=== PATIENT | male | born 1985 ===

== ENCOUNTER 2017-08-11 13:38 | Emergency (ER) | payer MEDICAID, OTHER ==
[2017-08-11 13:48] VITALS: BMI 29.3
[2017-08-11 13:53] VITALS: PULSE 74; TEMP 97.9; O2SAT 98
[2017-08-11] MEDS ORDERED: Sodium Chloride 0.9% 1,000 ML IV ONE (13:57)
[2017-08-11] MEDS ORDERED: Sodium Chloride 0.9% 1,000 ML ONE (14:05)
--- NOTE | 2017-08-11 14:12 | C.PDOC ---
History Of Present Illness 32 yo male come in for evaluation of epigastric pain associated with nausea, intractable vomiting since yesterday evening. Pt reports, " went out for family dinner last night, had [employer]. and soon after developed stomach pain with intractable vomiting". Pt admits, was unable tolerate any PO today AM as well. Otherwise, pt denies fever, chills, headache, dizziness, neck pain, throat pain/ swelling or tightness, drooling, CP, SOB, dyspnea, diaphoresis, palpitation, hematemesis, diarrhea, back pain, UTIU sx, denies previous hx of GI ds. Ambulate to Ed for evaluation, appears comfortable, not in any apparent distress. Time Seen by Provider: 08/11/17 13:55 Chief Complaint (Nursing): Abdominal Pain History Per: Patient Past Medical History Reviewed: Historical Data, Nursing Documentation, Vital Signs Vital Signs: Last Vital Signs Temp 97.9 F 08/11/17 13:48 Pulse 74 08/11/17 13:48 Resp 18 08/11/17 13:48 BP 114/67 08/11/17 13:48 Pulse Ox 98 08/11/17 14:13 - Medical History PMH: No Chronic Diseases Surgical History: No Surg Hx Family History: States: No Known Family Hx - Social History Hx Tobacco Use: Yes Hx Alcohol Use: Yes Hx Substance Use: No - Immunization History Hx Tetanus Toxoid Vaccination: No Hx Influenza Vaccination: No Hx Pneumococcal Vaccination: No Review Of Systems Except As Marked, All Systems Reviewed And Found Negative. Constitutional: Negative for: Fever, Chills Eyes: Negative for: Vision Change ENT: Negative for: Throat Pain, Throat Swelling Cardiovascular: Negative for: Chest Pain, Palpitations Respiratory: Negative for: Cough, Shortness of Breath, Wheezing Gastrointestinal: Positive for: Nausea, Vomiting, Abdominal Pain. Negative for : Diarrhea, Melena, Hematochezia, Hematemesis, Rectal Pain Genitourinary: Negative for: Dysuria, Frequency, Incontinence Musculoskeletal: Negative for: Neck Pain, Back Pain Skin: Negative for: Rash Neurological: Negative for: Weakness, Numbness, Altered Mental Status, Headache , Dizziness Physical Exam - Physical Exam Appears: Well, Non-toxic, No Acute Distress Skin: Normal Color, Warm, Dry, No Rash Head: Normacephalic Eye(s): bilateral: PERRL Nose: No Flaring, No Discharge Oral Mucosa: Moist, No Drooling Throat: No Erythema, No Exudate, No Drooling Neck: Trachea Midline, Supple Cardiovascular: Rhythm Regular Respiratory: No Decreased Breath Sounds, No Rales, No Rhonchi, No Wheezing Gastrointestinal/Abdominal: Soft, Tenderness (mod epigastric tenderness), No Distention, No Guarding, No Rebound Back: No CVA Tenderness Extremity: Normal ROM, No Deformity, No Swelling Neurological/Psych: Oriented x3, Normal Speech ED Course And Treatment - Laboratory Results Result Diagrams: 08/11/17 14:22 08/11/17 14:22 O2 Sat by Pulse Oximetry: 98 Pulse Ox Interpretation: Normal Progress Note: Pt was OBS in ED for 2 hours and remained stable during the ED evaluation. AFebrile, hemodynamicaly stable. Non-toxic. Pt was given PO challenge, was able tolerate ED well. ENT: NO acute finidngs. Neck: SUpple. Lungs: CTA B/L, BS equal B/L. CVS: (+)S1S2, reg. Abd: benign, (-) guarding, (- ) rebound, (-) localized tenderness. Back: (-) CVA tenderness. Neurologicaly intact. Blood work review and appears without acute abnoramlities. Pt has clinical findings c/w epigastric pain, vomiting, polysubstance abuse. Pt advised. ref. to F/u with PMD, DEtox in 2-3 days for re-eavl. return to ED if any worsening or new changes. Disposition Counseled Patient/Family Regarding: Studies Performed, Diagnosis, Need For Followup, Rx Given - Disposition Referrals: Ambrosio Roland [Staff Provider] - [facility] [Outside] Disposition: HOME/ ROUTINE Disposition Time: 15:54 Condition: STABLE Additional Instructions: ENCOURAGE FLUIDS TAKE MEDICATION PRESCRIBED DIET RESTRICTION FOR 1-2 DAYS, ADVANCE TOLERATED CONSIDER STOP USING DRUGS- OR DETOX FOLLOW UP WITH PMD IN 2-3 DAYS FOR RE-EVALUATION. RETURN TO ED IF ANY WORSENING OR NEW CHANGES. Prescriptions: Pantoprazole Sodium [Protonix] 40 mg PO DAILY #20 tablet.dr Instructions: Epigastric Pain (ED), Acute Nausea and Vomiting (ED), Polysubstance Abuse (ED) Forms: [employer] (Greek) - Clinical Impression Clinical Impression: Vomiting, Nausea, Epigastric abdominal pain, Polysubstance abuse
[2017-08-11 14:25] LABS: BASO # 0.1 K/uL (0.0-0.2); BASO % 1.4 % (0.0-2.0); EOS # 0.3 K/uL (0.0-0.7); EOS % 6.3 % (0.0-4.0); LYMPH # 1.3 K/uL (1.0-4.3); LYMPH % 28.5 % (20.0-40.0); MEAN CELL VOLUME 97.4 fL (80.0-94.0); MEAN CORPUSCULAR HEMOGLOBIN 32.4 pg (27.0-31.0); MEAN CORPUSCULAR HGB CONC 33.3 g/dL (33.0-37.0); MEAN PLATELET VOLUME 8.7 fL (7.2-11.7); MONO # 0.5 K/uL (0.0-0.8); MONO % 9.9 % (0.0-10.0); NRBC % 0.2 % (0.0-2.0); RED CELL DISTRIBUTION WIDTH 12.9 % (11.5-14.5); WHITE BLOOD COUNT 4.6 K/uL (4.8-10.8)
[2017-08-11 14:36] LABS: ALB/GLOB RATIO 0.9 (1.0-2.1); ALKALINE PHOSPHATASE 50 U/L (38-126); ALT/SGPT 52 U/L (21-72); AST/SGOT 28 U/L (17-59); BILIRUBIN,TOTAL 0.6 mg/dL (0.2-1.3); BLOOD UREA NITROGEN 10 mg/dL (9-20); CALCIUM 7.8 mg/dl (8.6-10.4); CARBON DIOXIDE 28 mmol/L (22-30); CHLORIDE 104 mmol/L (98-107); GFR AFRICAN-AMERICAN > 60; GLUCOSE,RANDOM 62 mg/dL (75-110); POTASSIUM 3.2 mmol/L (3.6-5.2); SODIUM 138 mmol/L (132-148); TOTAL PROTEIN 7.3 g/dL (6.3-8.3)
[2017-08-11 14:43] LABS: RBC URINE 1 /hpf (0-3); URINE BACTERIA RARE (<OCC); URINE BILIRUBIN NEGATIVE (NEGATIVE); URINE BLOOD NEGATIVE (NEGATIVE); URINE COLOR Yellow (YELLOW); URINE GLUCOSE (UA) NORMAL (Normal); URINE KETONE NEGATIVE (NEGATIVE); URINE LEUKOCYTE ESTERASE TRACE Leu/uL (Negative); URINE PROTEIN NEGATIVE (NEGATIVE); WBC URINE 5 /hpf (0-5)
[2017-08-11] MEDS ORDERED: Potassium Chloride 20 mEq ER Tab PO STA (14:54)
[2017-08-11] MEDS ORDERED: Potassium Chloride 20 mEq ER Tab PO ONE (16:14)
[2017-08-11 16:18] VITALS: BP 119/78; RESP 16
== END 2017-08-11 16:39 | disposition home or self-care (01) ==
LOC: C.ER 13:38
DX: R10.13 Epigastric pain (principal); R11.2 Nausea with vomiting, unspecified; F19.10 Other psychoactive substance abuse, uncomplicated
CPT/HCPCS: 80053; 81001; 83690; 85025; 96374; 96375; 99285; C9113; G0480; J2765; J7040